=== PATIENT | male | born 1950 | race Caucasian/White ===

== ENCOUNTER 2018-02-15 12:40 | Observation (INO) ==
[2018-02-15] MEDS ORDERED: Acetaminophen 325 MG Tablet PO PRN (21:14)
[2018-02-15] MEDS ORDERED: Bisacodyl 10 MG Supp RECTAL PRN (21:14)
[2018-02-15] MEDS ORDERED: Dextrose 50% in Water 50 ML Vial IV.PUSH PRN (21:14)
[2018-02-15] MEDS ORDERED: Azithromycin Inj 500 MG in Sodium Chlor 0.9% Inj 250 ML IV.SIG SCH (22:00)
[2018-02-15] MEDS: Heparin - SQ 10,000 UNITS/ML Vial SQ SCH (22:21)
[2018-02-15] MEDS: MethylPREDNISolone Sod Succinate Inj 40 MG/ML Vial IV.PUSH SCH (22:21)
[2018-02-16] MEDS: Insulin NovoLOG Aspart Correctional Sugar Inj SQ SCH ×3 (03:11→11:36)
[2018-02-16 07:21] LABS: Chloride 106 meq/L (98-107); Potassium 4.1 meq/L (3.5-5.1); Sodium 140 meq/L (136-145)
[2018-02-16 07:24] LABS: Anion Gap 8 meq/L (5-15); Blood Urea Nitrogen 19 mg/dL (7-18); Carbon Dioxide 25.8 meq/L (21.0-32.0); Glucose,Random 170 mg/dL (74-106)
[2018-02-16 07:25] LABS: Baso % (Auto) 0.3 % (0.0-2.0); Hematocrit 42.3 % (39.0-51.0); Hemoglobin 14.1 gm/dL (13.0-17.0); Lymph # (Auto) 1.3 th/mm3 (1.0-4.8); Lymph % (Auto) 10.4 % (9.0-44.0); Mean Corpuscular HGB Conc 33.3 % (32.0-36.0); Mean Platelet Volume 8.4 fL (7.0-11.0); Mono # (Auto) 0.3 th/mm3 (0.0-0.9); Mono % (Auto) 2.3 % (0.0-8.0); Neut # (Auto) 11.1 th/mm3 (1.8-7.7); Platelet Count 287 th/mm3 (150-450); Red Blood Count 4.55 mil/mm3 (4.50-5.90); Red Cell Distribution Width 13.5 % (11.6-17.2); White Blood Count 12.7 th/mm3 (4.0-11.0)
[2018-02-16 07:28] LABS: Glomerular Filtration Rate Greater Than 89 mL/min (>89)
[2018-02-16 08:38] VITALS: BP 156/80; PULSE 73; RESP 21; TEMP 98.6; O2SAT 95
[2018-02-16] MEDS: Heparin - SQ 10,000 UNITS/ML Vial SQ SCH (08:42)
[2018-02-16] MEDS ORDERED: amLODIPine 5 MG Tablet PO SCH (09:00)
[2018-02-16] MEDS ORDERED: Senna/Docusate Sodium 8.6/50 MG Tablet PO SCH (09:00)
[2018-02-16] MEDS: MethylPREDNISolone Sod Succinate Inj 40 MG/ML Vial IV.PUSH SCH (11:13)
--- NOTE | 2018-02-16 11:54 | P.HPIM ---
History of Present Illness Primary Care Physician: Norberto Connelly MD History of Present Illness: 57-year-old male with a history of diabetes, hypertension, depression who presents with a 3-month history of progressively worsening dry cough, 2 weeks of sinus congestion. Patient denies any shortness of breath, however did report this on presentation to the ER. He denies any chest pain. Denies any nausea or vomiting. He says he has been prescribed a Z-Je as outpatient which did not help, as well as an inhaler which he has not used. Patient has received IV steroids, nebulizers and now says that he is feeling much better, feels like going home. Review of Systems All other systems reviewed negative except as stated in HPI PMFSH - History History Provided By: Patient - Medical History Medical History: Medical History (Last Reviewed 02/16/18 @ 11:50 by Valentin Kaur MD) Depression Diabetes mellitus HTN (hypertension) - Surgical History Surgical History: Surgical History (Last Reviewed 02/16/18 @ 11:50 by Valentin Kaur MD) History of back surgery History of knee replacement Hx of cholecystectomy - Family History Family History: Family History (Last Updated 02/16/18 @ 11:50 by Valentin Kaur MD) Mother Age older than 85 years Other CHF (congestive heart failure) - Tobacco History Second Hand Smoke Exposure: No Tobacco Use In Past 30 Days: No Smoking Status: Former smoker Tobacco Type: Cigarettes - Alcohol History How Often Do You Have a Drink Containing Alcohol: Monthly or less - Substance Use History Substance History: No History of Abuse - Travel History Recent Travel in the [place] Within the Last 8 Weeks: No Recent Travel Out of the Country Within the Last 8 Weeks: No Medications and Allergies Active Medications: Active Medications Acetaminophen (Tylenol) 650 mg PO Q4H PRN PRN Reason: Temp > 100.4 Al Hydroxide/Mg Hydroxide (Milk Of Magnesia Liq) 30 ml PO Q12H PRN PRN Reason: Mild Constipation Albuterol (Duoneb Neb (Prn)) 1 ampul NEB Q4HR NEB PRN PRN Reason: SHORTNESS OF BREATH/WHEEZING Amlodipine Besylate (Norvasc) 5 mg PO DAILY NIGHAT Last Admin: 02/16/18 08:42 Dose: 5 mg Bisacodyl (Dulcolax Supp) 10 mg RECTAL DAILY PRN PRN Reason: SEVERE CONSITIPATION Dextrose (D50w Vial) 50 ml IV.PUSH UNSCH PRN PRN Reason: PER HYPOGLYCEMIA PROTOCOL Glucagon (Glucagon Inj) 1 mg OTHER PRN PRN PRN Reason: for Hypoglycemia Protocol Heparin Sodium (Porcine) (Heparin Inj) 5,000 units SQ Q12H [facility] Last Admin: 02/16/18 08:42 Dose: 5,000 units Azithromycin 500 mg/ Sodium (Chloride) 250 mls @ 250 mls/hr IV.SIG Q24H [facility] Last Infusion: 02/15/18 23:20 Dose: Infused Ceftriaxone Sodium 1,000 mg/ (Sodium Chloride) 100 mls @ 200 mls/hr IV.SIG Q24H NIGHAT Insulin Aspart (Novolog Insulin Correctional Sugar Inj) 0 unit SQ ACHS AND 3AM NIGHAT; Protocol Last Admin: 02/16/18 11:36 Dose: 1 unit Lactulose (Lactulose Liq) 30 ml PO DAILY PRN PRN Reason: SEVERE CONSITIPATION Losartan Potassium (Cozaar) 50 mg PO DAILY [facility] Last Admin: 02/16/18 08:42 Dose: 50 mg Methylprednisolone Sodium Succinate (Solumedrol Inj) 40 mg IV.PUSH Q12H [facility] Last Admin: 02/16/18 11:13 Dose: 40 mg Ondansetron HCl (Zofran Inj) 4 mg IV.PUSH Q6H PRN PRN Reason: NAUSEA OR VOMITING Senna/Docusate Sodium (Radha-Colace) 1 tab PO BID [facility] Last Admin: 02/16/18 08:41 Dose: Not Given Sennosides (Senokot) 17.2 mg PO Q12H PRN PRN Reason: Moderate Constipation Sodium Chloride (Ns Flush) 2 ml IV.FLUSH BID [facility] Last Admin: 02/16/18 08:42 Dose: 2 ml Sodium Chloride (Ns Flush) 2 ml IV.FLUSH PRN PRN PRN Reason: FLUSH AFTER USING IV ACCESS Last Admin: 02/15/18 22:19 Dose: 2 ml Allergies Allergy/AdvReac Type Severity Reaction Status Date / Time No Known Allergies Allergy Verified 02/15/18 13:15 Home Medications Medication Instructions Recorded Confirmed Type amlodipine 5 mg PO DAILY 02/15/18 02/15/18 History citalopram 40 mg PO DAILY 02/15/18 02/15/18 History escitalopram oxalate 20 mg PO DAILY 02/15/18 02/15/18 History losartan 50 mg PO DAILY 02/15/18 02/15/18 History metformin 1,000 mg PO DAILY 02/15/18 02/15/18 History Exam Vital signs: Vital Signs 02/15/18 19:54 02/16/18 00:00 02/16/18 04:00 Temperature 98.4 F 97.9 F 97.9 F Pulse Rate 72 65 64 Respiratory Rate 16 16 16 Blood Pressure 136/77 151/75 H 147/84 H Pulse Oximetry 95 96 96 02/16/18 08:00 Temperature 98.6 F Pulse Rate 73 Respiratory Rate 21 Blood Pressure 156/80 H Pulse Oximetry 95 Intake & Output 02/15/18 02/16/18 02/16/18 18:59 06:59 18:59 Intake Total 250 / 250 360 / 360 Output Total 300 / 300 Balance 250 / 250 60 / 60 Weight 132.9 kg Intake: IV 250 / 250 Azithromycin Inj 500 MG In NS 250 / 250 Inj 250 ML @ 250 mls/hr IV.SIG Q24H NIGHAT Rx#:[id number] Oral 360 / 360 Output: Urine 300 / 300 Other: # Voids 3 Date of Last Bowel Movement 02/15/18 Narrative: GENERAL: Patient lying in bed flat. Appears comfortable. Alert and oriented x3. SKIN: Warm and dry. HEAD: Atraumatic. Normocephalic. EYES: Pupils equal and round. No scleral icterus. No injection or drainage. ENT: No nasal bleeding or discharge. Mucous membranes pink and moist. NECK: Trachea midline. No JVD. CARDIOVASCULAR: Regular rate and rhythm. RESPIRATORY: No accessory muscle use. Clear to auscultation. Breath sounds equal bilaterally. No rhonchi, no rales. Distant breath sounds secondary to body habitus GASTROINTESTINAL: Abdomen soft, non-tender, nondistended. Hepatic and splenic margins not palpable. MUSCULOSKELETAL: Extremities without clubbing, cyanosis, or edema. No obvious deformities. NEUROLOGICAL: Awake and alert. No obvious cranial nerve deficits. Motor grossly within normal limits. Five out of 5 muscle strength in the arms and legs. Normal speech. PSYCHIATRIC: Appropriate mood and affect; insight and judgment normal. Results - Labs CBC & Chem 7: 02/16/18 05:47 02/16/18 05:47 Labs: Short CBC 02/16/18 Range/Units 05:47 WBC 12.7 H (4.0-11.0) th/mm3 Hgb 14.1 (13.0-17.0) gm/dL Hct 42.3 (39.0-51.0) % Plt Count 287 (150-450) th/mm3 [facility] 02/16/18 05:47 Sodium 140 Potassium 4.1 Chloride 106 Carbon Dioxide 25.8 BUN 19 H Creatinine 0.80 Calcium 9.0 Caprini VTE Risk Assessment Caprini VTE Risk Assessment: Moderate/High Risk (score >= 2) Caprini Risk Assessment Model: Point Value = 1 Point Value = 2 Point Value = 3 Point Value = 5 Age 41-60 Minor surgery BMI > 25 kg/m2 Swollen legs Varicose veins or History of unexplained or recurrent spontaneous Oral contraceptives or hormone replacement Sepsis (< 1 month) Serious lung disease, including pneumonia (< 1 month) Abnormal pulmonary function Acute myocardial infarction Congestive heart failure (< 1 month) History of inflammatory bowel disease Medical patient at bed rest Age 61-74 Arthroscopic surgery Major open surgery (> 45 min) Laparoscopic surgery (> 45 min) Malignancy Confined to bed (> 72 hours) Immobilizing plaster cast Central venous access Age >= 75 History of VTE Family history of VTE Factor V Leiden Prothrombin [id number] Lupus anticoagulant Anticardiolipin antibodies Elevated serum homocysteine Heparin-induced thrombocytopenia Other congenital or acquired thrombophilia Stroke (< 1 month) Elective arthroplasty Hip, pelvis, or leg fracture Acute spinal cord injury (< 1 month) Prophylaxis Regimen: Total Risk Factor Score Risk Level Prophylaxis Regimen 0-1 Low Early ambulation 2 Moderate Order ONE of the following: *Sequential Compression Device (SCD) *Heparin 5000 units SQ BID 3-4 Higher Order ONE of the following medications: *Heparin 5000 units SQ TID *Enoxaparin/Lovenox 40 mg SQ daily (WT < 150 kg, CrCl > 30 mL/min) *Enoxaparin/Lovenox 30 mg SQ daily (WT < 150 kg, CrCl > 10-29 mL/min) *Enoxaparin/Lovenox 30 mg SQ BID (WT < 150 kg, CrCl > 30 mL/min) AND/OR *Sequential Compression Device (SCD) 5 or more Highest Order ONE of the following medications: *Heparin 5000 units SQ TID (Preferred with Epidurals) *Enoxaparin/Lovenox 40 mg SQ daily (WT < 150 kg, CrCl > 30 mL/min) *Enoxaparin/Lovenox 30 mg SQ daily (WT < 150 kg, CrCl > 10-29 mL/min) *Enoxaparin/Lovenox 30 mg SQ BID (WT < 150 kg, CrCl > 30 mL/min) AND *Sequential Compression Device (SCD) Assessment and Plan - Plan //Acute COPD exacerbation. //Atelectasis versus //Suspected community-acquired pneumonia -Chest x-ray with some right basilar atelectasis versus infiltrate -Improved on IV steroids and nebulizers Will discharge home on Levaquin, prednisone taper, albuterol inhaler. Patient is to follow-up with front end alignment specialist. //Diabetes mellitus Blood sugars acceptable on IV steroids. Has only gotten single units of insulin. Expect to be stable on prednisone taper. //Hypertension. Blood pressure acceptable. Continue home medications and follow-up with pulmonology. //History of obstructive sleep apnea. Patient will continue use CPAP. He will follow-up with pulmonology. Discussed Condition With: Patient, nurse Discharge Planning: Discharge home in good condition. H&P: Quality - VTE Deep Vein Thrombosis/Pulmonary Embolism Present on Admission: No
== END 2018-02-16 13:17 | disposition home or self-care (01) ==
LOC: PHEDDLT 18:22 → PH3 18:23 → INTOOBSV 18:23
PROVIDERS: ADMIT Internal Medicine; ATTEND Internal Medicine
CPT/HCPCS: 36600; 71010; 71045; 80048; 80053; 82805; 82948; 82962; 83520; 83605; 83880; 84484; 85025; 87040; 90761; 90765; 90775; 93005; 94640; 94664; 94665; 96361; 96365; 96372; 96375; 96376; 99291; G0378; J0456; J0696; J1644; J1815; J2920; J2930; J7030; J7050